=== PATIENT | female | born 1955 | race Caucasian/White ===

== ENCOUNTER 2018-12-11 08:30 | Emergency (ER) | payer MEDICAID ==
[~2018-12-11] VITALS: Ht 154.9 cm; Wt 60.8 kg
[2018-12-11 08:34] VITALS: BP 164/71
--- NOTE | 2018-12-11 08:40 | NUR ---
DR. CANDELARIO AT BEDSIDE
--- NOTE | 2018-12-11 08:41 | NUR ---
C/O SMALL, APPROX. 4 MM BLACK DOT TO THE TOP OF L FOOT X4 MONTHS. PT REPORTS PAIN 10/10 AND SHARP SURROUNDING THE AREA. PT RECEIVED HD M,W,F & SHUNT TO R UPPER ARM. PT STATES SHE SAW HER PCP FOR IT BUT WAS TOLD IT IS A BLOOD BLISTER. PT IN BED IN LOW POSITION, SIDE RAIL UP X1. DAUGHTER AT BEDSIDE.
[2018-12-11] MEDS ORDERED: HYDROcodone/APAP 5/325 MG 1 TAB TAB PO ONE (09:00)
[2018-12-11 09:13] VITALS: BP 164/71
== END 2018-12-11 09:13 | disposition home or self-care (01) ==
LOC: MED 08:30
DX: M79.672 Pain in left foot (principal); E11.22 Type 2 diabetes mellitus with diabetic chronic kidney disease; N18.6 End stage renal disease; L81.9 Disorder of pigmentation, unspecified; Z99.2 Dependence on renal dialysis; Z98.890 Other specified postprocedural states
CPT/HCPCS: 99283

== ENCOUNTER 2019-02-01 21:23 | Emergency (ER) | payer MEDICAID ==
[~2019-02-01] VITALS: Ht 152.4 cm; Wt 59.0 kg
[2019-02-01 21:35] VITALS: BP 109/59
--- NOTE | 2019-02-01 21:35 | NUR ---
TO BED # 08 AMBULATORY
--- NOTE | 2019-02-01 22:09 | NUR ---
Dr. Hartley examining patient.
--- NOTE | 2019-02-01 22:09 | NUR ---
63 Y/O F BIB FAMILY WITH C/O RT ARM PAIN X1 WEEK. PT REPORTS THAT PAIN CAN BE SO INTENSE THAT IT CAUSES A CRAMPING SENSATION TO HANDS. PT HAS A/V FISTULA NOTED TO RT UPPER ARM. +THRILL/BRUIT. EDEMA NOTED TO RT HAND. +RADIAL PULSES.PT SELF MEDICATING WITH ADVIL WHICH PROVIDES SOME RELIEF. FAMILY AT BEDSIDE. WILL CONTINUE TO MONITOR
--- NOTE | 2019-02-01 22:12 | NUR ---
ULTRASOUND AT BEDSIDE
[2019-02-01] MEDS ORDERED: KETOROLAC 60 MG/2 ML VIAL IM ONE (22:15)
--- NOTE | 2019-02-01 23:30 | NUR ---
PT LAYING IN BED. FAMILY AT BEDSIDE. WILL CONTINUE TO MONITOR.
--- NOTE | 2019-02-01 23:53 | NUR ---
KATHY FROM RADIOLOGY CALLED TO GIVE REPORT FOR U/S, WILL FAX RESULTS. DEONDRE MADE AWARE
--- NOTE | 2019-02-02 00:20 | NUR ---
SPOKE WITH KAROLINA, NURSE BRAKE RIDER TO GIVEN INFORMATION REGARDING PT STATUS.
--- NOTE | 2019-02-02 00:40 | NUR ---
PT LAYING IN BED, FAMILY AT BEDSIDE. RR EVEN AND UNLABORED, DENIES CP OR SOB. REPORTS 8/10 TOLERABLE R ARM PAIN. VS NOTED. ALL NEEDS MET.
[2019-02-02 00:42] LABS: ALBUMIN 3.2 g/dL (3.4-5.0); ANION GAP 13.3 (8-16); CARBON DIOXIDE 33.5 mmol/L (21-32); POTASSIUM 4.8 mmol/L (3.5-5.1); TOTAL BILIRUBIN 0.3 mg/dL (0.0-1.0)
[2019-02-02 00:45] LABS: CREATININE 6.6 mg/dL (0.6-1.3); PROTHROMBIN TIME 9.8 secs (10.8-13.4)
[2019-02-02] MEDS ORDERED: SEVE800T6 PO (00:47)
[2019-02-02] MEDS ORDERED: INSULIN NOVOLIN SUBQ (00:47)
[2019-02-02] MEDS ORDERED: LIP80 PO (00:47)
[2019-02-02] MEDS ORDERED: ENOXAPARIN 60 MG/0.6 ML SYR SUBQ ONE (00:50)
[2019-02-02 01:03] LABS: BASOPHILS % (AUTO) 0.6 % (0.0-2.0); EOSINOPHILS # (AUTO) 0.1 K/uL (0-0.4); EOSINOPHILS % (AUTO) 1.2 % (0.0-4.0); HEMATOCRIT 35.8 % (36-48); HEMOGLOBIN 11.5 g/dL (12.0-16.0); LYMPHOCYTES # (AUTO) 1.5 K/uL (2.5-16.5); LYMPHOCYTES % (AUTO) 19.3 % (20.5-51.1); MEAN CORPUSCULAR HEMOGLOBIN 29 pg (27-31); MEAN CORPUSCULAR HGB CONC 32 g/dL (33-37); MEAN CORPUSCULAR VOLUME 90.3 fL (80-94); MONOCYTES # (AUTO) 0.7 K/uL (0.8-1.0); MONOCYTES % (AUTO) 9.2 % (1.7-9.3); NEUTROPHILS # (AUTO) 5.4 K/uL (1.8-7.7); NEUTROPHILS % (AUTO) 69.7 % (42.2-75.2); PLATELET COUNT (AUTO) 144 K/uL (140-450); RED BLOOD CELL COUNT(AUTO) 3.96 MIL/uL (4.20-5.40); RED CELL DISTRIBUTION WIDTH 14.6 % (11.6-13.7); WHITE BLOOD COUNT (AUTO) 7.7 K/uL (4.8-10.8)
--- NOTE | 2019-02-02 02:10 | NUR ---
SPOKE WITH KAROLINA, BEATER TENDER WHO STATED [facility] ETA IS 30 MINS.
--- NOTE | 2019-02-02 02:15 | NUR ---
PT ASLEEP. VISBLE CHEST RISE AND FALL NOTED. FAMILY AT BEDSIDE. WILL CONTINUE TO MONITOR.
--- NOTE | 2019-02-02 02:32 | NUR ---
SPOKE TO ROSE MARY OWEN AT [facility] TO GIVE REPORT AND UPDATE ON PT ETA
[2019-02-02 02:50] VITALS: BP 133/79
--- NOTE | 2019-02-02 03:14 | NUR ---
[facility] TRANSPORT AT BEDSIDE
--- NOTE | 2019-02-02 03:18 | NUR ---
Patient to be transferred to [facility]. Is being transferred due to insurance request. Receiving facility has accepting physician and available space. ER physician has signed transfer form. Patient or responsible alliance party has agreed to transfer and signed form. Patient belongings inventoried and will be sent with patient. Copy of nursing notes, lab reports, EKG, Physicians Orders and X-rays to be sent with patient.
--- NOTE | 2019-02-02 03:19 | NUR ---
PT LEFT TO [facility]. SPOKE WITH JOSE G TO INFORM HER THAT PT IS EN ROUTE.
== END 2019-02-02 03:19 | disposition short-term general hospital (02) ==
LOC: MED 21:23
DX: T82.868A Thrombosis due to vascular prosthetic devices, implants and grafts, initial encounter (principal); E11.9 Type 2 diabetes mellitus without complications; I10 Essential (primary) hypertension; Z87.448 Personal history of other diseases of urinary system; Z79.4 Long term (current) use of insulin; Z79.899 Other long term (current) drug therapy; Y83.2 Surgical operation with anastomosis, bypass or graft as the cause of abnormal reaction of the patient, or of later complication, without mention of misadventure at the time of the procedure
CPT/HCPCS: 36415; 80053; 85025; 85610; 85730; 93971; 96372; 99285; J1650; J1885; Q0092

== ENCOUNTER 2020-09-09 20:16 | Emergency (ER) | payer MEDICAID ==
[~2020-09-09] VITALS: Ht 157.5 cm; Wt 63.5 kg
[~2020-09-09 20:16] MED LIST: INSULIN NOVOLIN SUBQ; LIP80 PO; SEVE800T6 PO
[2020-09-09 20:30] VITALS: BP 111/46
[2020-09-09] MEDS ORDERED: MAGNESIUM CITRATE 300 ML BTL PO ONE (20:50)
[2020-09-09] MEDS ORDERED: DOCUSATE SODIUM 100 MG GELCAP PO ONE (20:50)
[2020-09-09] MEDS ORDERED: ACETAMINOPHEN 325 MG TAB PO ONE (21:40)
[2020-09-09] MEDS ORDERED: SODIUM PHOSPHATE 118 ML ENEM RC ONE (22:10)
[2020-09-10] MEDS ORDERED: DOCU-299 PO ×2 (01:54→02:24)
[2020-09-10 02:29] VITALS: BP 131/32
== END 2020-09-10 02:29 | disposition home or self-care (01) ==
LOC: MED 20:16
DX: K59.00 Constipation, unspecified (principal); E11.22 Type 2 diabetes mellitus with diabetic chronic kidney disease; I12.0 Hypertensive chronic kidney disease with stage 5 chronic kidney disease or end stage renal disease; N18.6 End stage renal disease
CPT/HCPCS: 99285